=== PATIENT | male | born 1980 | race Caucasian/White ===

== ENCOUNTER 2020-09-03 10:48 | Day surgery (SDC) | payer OTHER ==
[2020-08-28 14:39] LABS: BASOPHILS # (AUTO) 0.1 X10'3 (0-0.2); BASOPHILS % (AUTO) 0.9 % (0-1); EOSINOPHILS # (AUTO) 0.1 X10'3 (0-0.9); EOSINOPHILS % (AUTO) 1.4 % (0-6); LYMPHOCYTES # (AUTO) 3.3 X10'3 (1.1-4.8); LYMPHOCYTES % (AUTO) 40.7 % (21-51); MEAN CORPUSCULAR HEMOGLOBIN 31.1 PG (27.0-31.0); MEAN CORPUSCULAR HGB CONC 34.1 g/dL (33.0-36.5); MEAN CORPUSCULAR VOLUME 91.1 FL (78-98); MEAN PLATELET VOLUME 8.4 FL (7.4-10.4); MONOCYTES # (AUTO) 0.5 X10'3 (0-0.9); MONOCYTES % (AUTO) 5.8 % (2-12); NEUTROPHILS # (AUTO) 4.1 X10'3 (1.8-7.7); NEUTROPHILS % (AUTO) 51.2 % (42-75); PRE OP HEMATOCRIT 46.3 % (42.0-52.0); PRE OP HEMOGLOBIN 15.8 g/dL (14.0-17.9); PRE OP PLATELET COUNT 180 X10'3 (140-440); RED BLOOD COUNT 5.08 X10'6 (4.70-6.10); RED CELL DISTRIBUTION WIDTH 13.8 % (11.5-14.5)
[2020-08-28 15:27] LABS: ALBUMIN 4.2 G/DL (3.4-5.0); ALBUMIN/GLOBULIN RATIO 1.1 (1.1-1.5); ALKALINE PHOSPHATASE 53 IU/L (46-116); BLOOD UREA NITROGEN 20 MG/DL (7-18); BUN/CREATININE RATIO 16.1 (5.4-32.0); CHLORIDE 104 MMOL/L (99-107); CREATININE 1.24 MG/DL (0.60-1.10); PRE OP ALT 42 U/L (30-65); PRE OP ANION GAP 9 (8-16); PRE OP AST 15 U/L (10-37); PRE OP BILIRUB, TOTAL 0.4 MG/DL (0.0-1.0); PRE OP GLUCOSE 98 MG/DL (70-104); PRE OP POTASSIUM 3.7 MMOL/L (3.4-5.1); PRE OP SODIUM 143 MMOL/L (135-145); TOTAL CARBON DIOXIDE 29.9 MMOL/L (24-32); eGFR 64 ML/MIN
[2020-08-28 15:33] LABS: CALCIUM 9.2 MG/DL (8.5-10.1)
[~2020-09-03] VITALS: Ht 180.3 cm; Wt 100.7 kg
[~2020-09-03 10:48] MED LIST: AMLO10TA13 PO; LISI20TA28 PO; VANCOMYCIN INJ 1000 MG in NORMAL SALINE 250ml IV.SOLN IV ONE; albuterol 2.5 MG/3 ML nebule NEB ONE; ceFAZolin 2gm in dextrose, iso 50 ML IV ONE; famotidine 20mg tablet PO ONE; ringers solution, lacted 1,000 ML IV SCH
[2020-09-03] MEDS ORDERED: BUPIVAcaine/PF 2.5 mg/ml (0.25%) 30ml vial ONE (11:38)
[2020-09-03] MEDS ORDERED: LIDOcaine 0.5% (5mg/ml) 50ml vial ONE (11:38)
[2020-09-03] MEDS ORDERED: methylPREDNISolone sod succ 125mg/2ml vial ONE (11:49)
[2020-09-03] MEDS ORDERED: fentaNYL/PF 50MCG/1 ML 2ML syringe ONE ×2 (11:54→12:08)
[2020-09-03] MEDS ORDERED: sevoflurane 250ml liquid IH ONE (11:55)
[2020-09-03] MEDS ORDERED: midazolam 1 mg/ML 2ml injection ONE ×2 (11:55→12:07)
[2020-09-03 12:32] VITALS: BP 120/84
[2020-09-03] MEDS ORDERED: propofol inj 20 ML IV ONE (12:32)
--- NOTE | 2020-09-03 12:32 | NUR ---
Received from OR via , accompanied by Anesthesiologist DR RYAN and report given by Anesthesiolgist. AWAKENS TO VOICE. VITALS STABLE. DRESSING DI. KG PAIN. FINGERS WARM AND PINK.
[2020-09-03] MEDS ORDERED: meperidine/PF 25mg/ml syringe IV PRN ×3 (12:40)
[2020-09-03] MEDS ORDERED: ondansetron/PF 4mg/2ml inj IV PRN (12:40)
[2020-09-03] MEDS ORDERED: ringers solution, lacted 1,000 ML IV SCH (12:40)
[2020-09-03] MEDS ORDERED: morphine 2 MG/ML inj. syringe IV PRN (12:40)
[2020-09-03] MEDS ORDERED: morphine 4 MG/ML inj SYRINge IV PRN (12:40)
[2020-09-03] MEDS ORDERED: proCHLORperazine 10 MG/2 ml inj IV PRN (12:40)
[2020-09-03 12:42] VITALS: BP 116/81
[2020-09-03 12:52] VITALS: BP 127/87
[2020-09-03 13:02] VITALS: BP 122/86
--- NOTE | 2020-09-03 13:12 | NUR ---
AWAKE AND ORIENTED. VITALS STABLE. DRESSING DI. KG PAIN. HOME WITH HIS AT THIS TIME.
[2020-09-03 13:27] VITALS: BP 121/84
[2020-09-03 13:30] VITALS: BP 121/84
== END 2020-09-03 13:12 | disposition home or self-care (01) ==
LOC: PAS 10:48
PROVIDERS: ATTEND Orthopaedic Surgery
DX: G56.02 Carpal tunnel syndrome, left upper limb (principal); G56.22 Lesion of ulnar nerve, left upper limb; F17.210 Nicotine dependence, cigarettes, uncomplicated; F17.220 Nicotine dependence, chewing tobacco, uncomplicated; I10 Essential (primary) hypertension; E66.8 Other obesity; Z68.30 Body mass index [BMI] 30.0-30.9, adult; Z72.89 Other problems related to lifestyle; Z86.19 Personal history of other infectious and parasitic diseases; Z79.899 Other long term (current) drug therapy
CPT/HCPCS: 36415; 64719; 64721; 80053; 82948; 85025; A6222; J2001; J2250; J2704; J2930; J3010; J3370; J3490; A4215; A4565; A4618; A6449; A7000; J7120